=== PATIENT | male | born 1955 ===

== ENCOUNTER → 2022-03-10 10:28 | Outpatient (CLI) | payer MEDICARE, OTHER, SELFPAY ==
--- NOTE | ~2022-03-10 | MR_ITS ---
EXAMINATION: MR shoulder LT wo con DATE: 03/10/2022 11:58 INDICATION: Left shoulder joint pain TECHNIQUE: Magnetic resonance imaging (MRI) of the left shoulder was performed without intravenous co ntrast. Sequences included axial PD-weighted FS FSE, coronal oblique PD-weighted FS FSE, coronal obli que T2-weighted FS FSE, sagittal PD-weighted FS FSE, and sagittal T1-weighted SE. COMPARISON: None. FINDINGS: Coracoacromial arch: The acromion undersurface is curved in morphology (type II). The coracoacromial ligament is normal. M oderate acromioclavicular osteoarthritis. Rotator cuff: Moderate supraspinatus and infraspinatus tendinopathy. There is fluid signal intensity articular side d tear extending 1.6 cm AP along the deep side of the superior facet footplate of the supraspinatus t endon. The tear appears to extend an additional 1 cm posteriorly as an intrasubstance tear of the con joined portion of the supraspinatus and infraspinatus tendons tendon with the intact appearing articu lar and bursal surface of the tendon but which appears attenuated with subtle concavity to the bursal surface at the distal 1 cm of the tendon. The teres minor tendon is normal. Mild subscapularis tendi nopathy without tear. No asymmetric rotator cuff muscle atrophy. There is relatively uniform mild fat ty infiltration of the musculature throughout the left shoulder girdle which may be related to body h abitus. Biceps tendon, glenoid labrum and glenohumeral cartilage: Long head of the biceps tendon is normal. The posterior superior to posterior glenoid labrum is small with amorphous increased signal consistent with likely chronic degeneration. Mild glenohumeral osteo arthritis with partial thickness cartilage loss at the superior to posterosuperior glenoid with small region of deep fissuring anterosuperiorly. Additional mild diffuse partial thickness cartilage loss along the humeral head most prominent superiorly and inferomedially. Fluid: Physiologic amount of fluid in the glenohumeral joint and biceps tendon sheath. No loose osteochondr al bodies. Mild increased fluid signal in the subacromial/subdeltoid bursa consistent with minimal bu rsitis. Bones: Normal marrow signal with no edema, fracture or abnormal marrow replacing process. IMPRESSION: 1. Moderate supraspinatus and infraspinatus tendinopathy with partial-thickness articular sided tear along the superior facet footplate of the supraspinatus tendon with attenuation of the more posterior conjoined portion of the supraspinatus and infraspinatus tendons suggesting additional partial-thick ness intrasubstance tear. 2. Mild left glenohumeral osteoarthritis with degenerative tearing at the posterior superior labrum. 3. Moderate acromioclavicular osteoarthritis. Reviewed, dictated and finalized at location B. IMPRESSION: 1. Moderate supraspinatus and infraspinatus tendinopathy with partial-thickness articular sided tear along the superior facet footplate of the supraspinatus t endon with attenuation of the more posterior conjoined portion of the supraspin atus and infraspinatus tendons suggesting additional partial-thickness intrasub stance tear. 2. Mild left glenohumeral osteoarthritis with degenerative tearing at the poste rior superior labrum. 3. Moderate acromioclavicular osteoarthritis.
== END ==
PROVIDERS: PCP Orthopaedic Surgery; Visit Provider Orthopaedic Surgery
DX: M19.012 Primary osteoarthritis, left shoulder (principal)
CPT/HCPCS: 73221